=== PATIENT | male | born 1935 | race Caucasian/White ===

== ENCOUNTER 2019-10-19 10:18 | Emergency (ER) | payer MEDICARE, BC ==
--- NOTE | 2019-10-19 11:03 | EDM.PDOC ---
ED HPI GENERAL MEDICAL PROBLEM - General Chief Complaint: Respiratory Problem Stated Complaint: DIFFICULT TIME BREATHING AND THIRSTY Time Seen by Provider: 10/19/19 11:02 Source of Information: Reports: Patient, Family, RN, RN Notes Reviewed History Limitations: Reports: No Limitations - History of Present Illness INITIAL COMMENTS - FREE TEXT/NARRATIVE: Patient had an episode of abrupt awakening last night about 3 AM. As he awoke he was scared, did not feel like he was getting adequate breath. As he came around he feels like he is breathing fine and getting plenty of breath. He has had 2 episodes in the past similar to the last one being over a year ago. Currently he is fine in his words. He is able to do all of his ADLs, he golfs, has no shortness of breath, no past medical history. Patient takes an aspirin a day no other medications. 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 Nothing significant other than possible snoring to relate to this issue. Onset: Sudden Onset Date: 10/19/19 Onset Time: 03:00 Duration: Minutes:, Resolved Prior to Arrival Location: Reports: Other (Patient felt he stopped breathing and when he woke he was able to catch his breath. This scared him and that is why he came in.) Quality: Reports: Other (Shortness of breath) Severity: Mild Improves with: Reports: Other (Awakening and catching his breath.) Worsens with: Reports: None Context: Reports: Other (Sleeping) Associated Symptoms: Reports: No Other Symptoms Treatments DOLL SURGEON: Reports: Other (see below) (Nothing) - Related Data Allergies Allergy/AdvReac Type Severity Reaction Status Date / Time No Known Allergies Allergy Verified 10/19/19 10:53 Home Meds: Home Meds Aspirin [Halfprin] 81 mg PO DAILY 10/19/19 [History] Past Medical History HEENT History: Reports: Cataract Gastrointestinal History: Reports: None Musculoskeletal History: Reports: None Endocrine/Metabolic History: Reports: Obesity/BMI 30+ - Past Surgical History Head Surgeries/Procedures: Reports: None HEENT Surgical History: Reports: None, Tonsillectomy GI Surgical History: Reports: Appendectomy Endocrine Surgical History: Reports: None Musculoskeletal Surgical History: Reports: Knee Replacement Dermatological Surgical History: Reports: None Social & Family History - Tobacco Use Smoking Status *Q: Former Smoker Used Tobacco, but Quit: No Month/Year Tobacco Last Used: 1986 Second Hand Smoke Exposure: No - Caffeine Use Caffeine Use: Reports: Coffee - Alcohol Use Days Per Week of Alcohol Use: 4 Number of Drinks Per Day: 2 Total Drinks Per Week: 8 - Recreational Drug Use Recreational Drug Use: No ED ROS GENERAL - Review of Systems Review Of Systems: See Below Constitutional: Reports: No Symptoms HEENT: Reports: No Symptoms Respiratory: Reports: Other (Episode of shortness of breath early this a.m. and recovered shortly after being awakened) Cardiovascular: Denies: Chest Pain, Dyspnea on Exertion, Palpitations, Syncope Endocrine: Reports: No Symptoms GI/Abdominal: Reports: No Symptoms : Reports: No Symptoms Musculoskeletal: Reports: No Symptoms Skin: Reports: No Symptoms Neurological: Denies: Confusion, Dizziness, Headache, Numbness, Weakness Psychiatric: Reports: No Symptoms Hematologic/Lymphatic: Reports: No Symptoms Immunologic: Reports: No Symptoms ED EXAM, GENERAL - Physical Exam Exam: See Below Exam Limited By: No Limitations General Appearance: Alert, WD/WN, No Apparent Distress Ears: Normal External Exam, Normal Canal, Hearing Grossly Normal, Normal TMs Nose: Normal Inspection, Normal Mucosa, No Blood Throat/Mouth: Normal Inspection, Normal Lips, Normal Teeth, Normal Gums, Normal Oropharynx, Normal Voice, No Airway Compromise Head: Atraumatic, Normocephalic Neck: Normal Inspection, Supple, Non-Tender, Full Range of Motion Respiratory/Chest: No Respiratory Distress, Lungs Clear, Normal Breath Sounds, No Accessory Muscle Use, Chest Non-Tender Cardiovascular: Normal Peripheral Pulses, Regular Rate, Rhythm, No Edema, No Gallop, No JVD, No Murmur, No Rub GI/Abdominal: Normal Bowel Sounds, Soft, Non-Tender, No Distention Extremities: Normal Inspection, Normal Range of Motion, Non-Tender, No Pedal Edema, Normal Capillary Refill Psychiatric: Normal Affect, Normal Mood Skin Exam: Warm, Dry, Intact, Normal Color, No Rash Course - Vital Signs Text/Narrative:: Long conversation with patient and his daughter who accompanies him today. P atient states he feels well. He has not been seen by a primary care provider in quite some time. Patient does snore. Eply score does not suggest sleep apnea. Plan for patient to follow-up with primary care provider for a physical and baseline labs. ER does not make referrals however a primary care provider could do this and make referrals as necessary for complete follow-up. Both patient and daughter are comfortable with this plan. Last Recorded V/S: Last Vital Signs Temp 37.8 C 10/19/19 10:57 Pulse 80 10/19/19 10:57 Resp 16 10/19/19 10:57 BP 130/69 10/19/19 10:57 Pulse Ox 98 10/19/19 10:57 Departure - Departure Time of Disposition: 12:00 Disposition: Home, Self-Care 01 Condition: Good Clinical Impression: Shortness of breath - Discharge Information *PRESCRIPTION DRUG MONITORING PROGRAM REVIEWED*: Not Applicable *COPY OF PRESCRIPTION DRUG MONITORING REPORT IN PATIENT LUANN: Not Applicable Instructions: Shortness of Breath, Adult, [id number] Referrals: Chinedu Bynum MD [Primary Care Provider] - Forms: ED Department Discharge Care Plan Goals: Follow-up with primary care provider Sepsis Event Note (ED) - Evaluation Sepsis Screening Result: No Definite Risk - Focused Exam Vital Signs: Vital Signs Temp Pulse Resp BP Pulse Ox 10/19/19 10:57 37.8 C 80 16 130/69 98 10/19/19 10:39 37.8 C 80 16 130/69 98
== END 2019-10-19 12:00 | disposition home or self-care (01) ==
LOC: JP.ED 10:18
DX: R06.02 Shortness of breath (principal); E66.9 Obesity, unspecified; Z79.82 Long term (current) use of aspirin; Z90.89 Acquired absence of other organs; Z87.891 Personal history of nicotine dependence; Z68.30 Body mass index [BMI] 30.0-30.9, adult
CPT/HCPCS: 99284